=== PATIENT | male | born 1950 | race Caucasian/White ===

== ENCOUNTER 2018-03-14 17:57 | Emergency (ER) | payer MEDICARE, OTHER ==
[~2018-03-14] VITALS: Ht 180.3 cm; Wt 84.8 kg
[~2018-03-14 17:57] MED LIST: ALEVE220 MG PO; ASPIR-LOW81 MG PO; AUGMENTIN 875-1 EACH PO; FISH OIL 1,0001 EAC1 PO; FISH OIL 1,0001 EAC2 PO; IBUPROFEN600 MG PO; NORCO 5-325 TA1 EACH PO; ZEGERID OTC 201 EACH PO
[2018-03-14] MEDS ORDERED: POLYMYXIN B-TMP10 ML OPTH (18:13)
[2018-03-14] MEDS ORDERED: TAMSULOSIN HCL0.4 MG PO (18:14)
[2018-03-14] MEDS ORDERED: DOXYCYCLINE HY100 MG PO (18:30)
[2018-03-14] MEDS ORDERED: MEDROL4 MG PO (18:30)
== END 2018-03-14 18:34 | disposition home or self-care (01) ==
LOC: ED 17:57
DX: H65.91 Unspecified nonsuppurative otitis media, right ear (principal); K21.9 Gastro-esophageal reflux disease without esophagitis; Z79.82 Long term (current) use of aspirin; Z79.899 Other long term (current) drug therapy
CPT/HCPCS: 99283

== ENCOUNTER 2021-02-04 12:58 | Day surgery (SDC) | payer MEDICARE, OTHER ==
[~2021-02-04] VITALS: Ht 177.8 cm; Wt 87.3 kg
[~2021-02-04 12:58] MED LIST changes: +DOXYCYCLINE HY100 MG PO; +MEDROL4 MG PO; +POLYMYXIN B-TMP10 ML OPTH; +TAMSULOSIN HCL0.4 MG PO
--- NOTE | 2021-02-04 18:14 | NUR ---
02/04/21 1814 Conti,Myah Mohr PATIENT SLEEPING. AWAKENS EASILY TO VOICE. O2 TURNED OFF. PATIENT ON ROOM AIR. DENIES PAIN.
--- NOTE | 2021-02-05 21:11 | OR ---
[facility] [address], [place] [address] Signed DATE OF OPERATION: 02/04/2021 SURGEON: Diamante Ray MD PREOPERATIVE DIAGNOSIS: History of polyp, tubular adenoma in 2018. POSTOPERATIVE DIAGNOSES: 1. Sigmoid diverticulosis. 2. Polyps x4 (small). PROCEDURE: Total colonoscopy to cecum with cold morcellation polypectomy x4. ANESTHESIA: Intravenous sedation, fentanyl 100 mcg and Versed 5 mg. INDICATION: This 70-year-old white man who is a patient Dr. Lopez and has history of polyps including tubular adenoma excised in 2018. He is symptom free currently. He has no family history of colon cancer. He was admitted at this time to undergo surveillance colonoscopy understand the risks of bleeding, infection, and perforation. FINDINGS: The prep was excellent. Complete colonoscopy was undertaken to the cecum without question. He had a very small polyp of the cecum, which was excised and almost certainly an adenoma. There were four other small polyps noted throughout the colon including the left sigmoid and rectosigmoid. Those polyps appeared likely to be adenomatous, though the lowest one was probably hyperplastic. There were no other findings of concern. PROCEDURE: The patient was brought to the endoscopy suite and placed in lateral decubitus position, given intravenous sedation to the point of slurred speech and nystagmus. Digital rectal examination was normal. An Olympus video colonoscope was passed in the rectum and manipulated throughout the colon noting numerous diverticula of the sigmoid and left colon. The scope was ultimately passed to the cecum. The ileocecal valve and appendiceal orifice were normal. Abdominal wall stabilization was required to attain complete intubation of the Electronically Signed By: DIAMANTE ARY MD 02/05/212110 PATIENT NAME: GABY VILLA OPERATIVE REPORT DATE OF : 46 REPORT #: [id number] PHYSICIAN: DIAMANTE RAY MD PCP: TONY LOPEZ MD REPORT IS CONFIDENTIAL AND NOT TO BE RELEASED WITHOUT AUTHORIZATION [facility] [address], [place] [address] Signed cecum, but it was accomplished without problem. A small polyp was noted in the cecum. This was excised with cold morcellation technique. The scope was withdrawn. Examination undertaken showing no sign of abnormality until the proximal transverse colon where a small polyp was noted this was excised with cold morcellation technique. The scope was further withdrawn. Another polyp was seen in the left colon and excised with cold morcellation technique. Further withdrawal showed numerous diverticula and ultimately hyperplastic appearing polyps of the rectosigmoid and sigmoid. These were excised as well. Retroflexed view in the rectum was normal. Scope was removed and the patient was taken to the recovery room in good condition. CONCLUDING DIAGNOSES: 1. Polyps x4. 2. Diverticulosis. PLAN: Recommend high-fiber diet and repeat colonoscopy in 3 years sooner if clinically indicated. He will return to the ongoing care of Dr. Lopez. MD MICHAEL Alonso/KIA /[id number] cc: Dr. Lopez Copies: ~ Electronically Signed By: DIAMANTE RAY MD 02/05/21 2111 PATIENT NAME: ALLENGABY OPERATIVE REPORT DATE OF : 46 REPORT #: [id number] PHYSICIAN: DIAMANTE RAY MD PCP: TONY LOPEZ MD REPORT IS CONFIDENTIAL AND NOT TO BE RELEASED WITHOUT AUTHORIZATION
--- NOTE | 2021-02-06 15:21 | PATH ---
[facility] [address] [place], [place] [address] Signed SPECIMEN(S): A CECAL POLYP SPECIMEN(S): B TRANSVERSE POLYP SPECIMEN(S): C DESCENDING POLYP SPECIMEN(S): D SIGMOID POLYP SPECIMEN SOURCE: A. CECAL POLYP B. TRANSVERSE POLYP C. DESCENDING POLYP D. SIGMOID POLYP CLINICAL HISTORY: Colonoscopy. Preop: Surveillance; history of colon polyps. Postop: Diverticulosis, colon polyps x 4. MICROSCOPIC DESCRIPTION: Histologic sections of all submitted blocks are examined by light microscopy. These findings, together with the gross examination, support the pathologic diagnosis. FINAL PATHOLOGIC DIAGNOSIS: A. Colon, cecum, polyp, polypectomy: - Tubular adenoma. - Negative for high-grade dysplasia or malignancy. B. Colon, transverse, polyp, polypectomy: - Tubular adenoma. - Negative for high-grade dysplasia or malignancy. C. Colon, descending, polyp, polypectomy: - Tubular adenoma. - Negative for high-grade dysplasia or malignancy. D. Colon, sigmoid, polyp, polypectomy: - Hyperplastic polyp. - Negative for dysplasia or malignancy. NAL:cml:C2NR GROSS DESCRIPTION: Four specimens are received in four containers, labeled "GD." A. The specimen, labeled "GD, #1," and designated on the requisition "cecum polyp," is received in formalin and consists of two avila soft tissue fragments that measure 0.3 cm in greatest dimension. The specimen is entirely submitted in cassette (A1). B. The specimen, labeled "GD, #2," and designated on the requisition PATIENT NAME: ALLEN,GABY ROBERT PATHOLOGY DATE OF : 46 REPORT #: [id number] PHYSICIAN: KEVAN PATHOLOGY PCP: TONY ESCOTO MD REPORT IS CONFIDENTIAL AND NOT TO BE RELEASED WITHOUT AUTHORIZATION [facility] [address] [place], [place] [address] Signed "transverse colon polyp," is received in formalin and consists of three avila soft tissue fragments that measure 0.2 cm in greatest dimension. The specimen is entirely submitted in cassette (B1). C. The specimen, labeled "GD, #3," and designated on the requisition "descending colon polyp," is received in formalin and consists of four avila soft tissue fragments that measure 0.2-0.3 cm in greatest dimension. The specimen is entirely submitted in cassette (C1). D. The specimen, labeled "GD, #4," and designated on the requisition "sigmoid colon polyp," is received in formalin and consists of one avila soft tissue fragment that measures 0.3 cm in greatest dimension. The specimen is entirely submitted in cassette (D1). AT (under the direct supervision of a pathologist) The Gross Description was prepared using a voice recognition system. The report was reviewed for accuracy; however, sound-alike word errors, addition and/or deletions may occur. If there is any question about this report, please contact Client Services. PERFORMING LABORATORY: The technical component was performed by [facility] [address] (Machine Feeder: Neena Leavitt MD; CLIA# [id number]). [facility], [address] [place] [id number] (CLIA# [id number]). Diagnostician: Bambi Capps MD Pathologist Electronically Signed 02/06/2021 Copies: ~ PATIENT NAME: ALLENGABY PATHOLOGY DATE OF : 46 REPORT #: [id number] PHYSICIAN: KEVAN COOK PCP: TONY ESCOTO MD REPORT IS CONFIDENTIAL AND NOT TO BE RELEASED WITHOUT AUTHORIZATION
== END 2021-02-04 18:55 | disposition home or self-care (01) ==
LOC: OPS 12:58 → DS 13:04 → OPS 14:00
PROVIDERS: ATTEND Surgery
PROC: 0DBL8ZX Excision of Transverse Colon, Via Natural or Artificial Opening Endoscopic, Diagnostic (ICD-10-PCS; 2021-02-04)
PROC: 0DBN8ZX Excision of Sigmoid Colon, Via Natural or Artificial Opening Endoscopic, Diagnostic (ICD-10-PCS; 2021-02-04)
PROC: 0DBM8ZX Excision of Descending Colon, Via Natural or Artificial Opening Endoscopic, Diagnostic (ICD-10-PCS; 2021-02-04)
PROC: 0DBH8ZX Excision of Cecum, Via Natural or Artificial Opening Endoscopic, Diagnostic (ICD-10-PCS; principal; 2021-02-04 14:00)
DX: Z12.11 Encounter for screening for malignant neoplasm of colon (principal); D12.0 Benign neoplasm of cecum; D12.4 Benign neoplasm of descending colon; D12.3 Benign neoplasm of transverse colon; K63.5 Polyp of colon; K21.9 Gastro-esophageal reflux disease without esophagitis; Z87.19 Personal history of other diseases of the digestive system; Z86.010 Personal history of colon polyps; Z80.0 Family history of malignant neoplasm of digestive organs; Z79.82 Long term (current) use of aspirin
CPT/HCPCS: 99153; G0500; J0690; J2250; J3010; J7121

== ENCOUNTER 2023-12-01 18:23 | Emergency (ER) | payer MEDICARE, OTHER ==
[~2023-12-01] VITALS: Ht 177.8 cm; Wt 87.1 kg
--- OUTSIDE RECORDS SUMMARY | 2023-12-01 18:31 | XMS ---
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 Trey has no Care Guidelines for this patient. Eve VISIT COUNT (12 MO.) 1 DAVIN Bush TOTAL 1 NOTE: Visits indicate total known visits. ED/UCC VISIT TRACKING (12 MO.) 12/01/2023 18:24 DAVIN Farmer [place] TYPE: Emergency COMPLAINT: - GROIN PAIN INPATIENT VISIT TRACKING (12 MO.) No inpatient visits to display in this time frame [email or web address]
[2023-12-01 19:17] VITALS: BP 171/98
== END 2023-12-01 19:08 | disposition home or self-care (01) ==
LOC: ED 18:23
DX: S76.111A Strain of right quadriceps muscle, fascia and tendon, initial encounter (principal); X50.1XXA Overexertion from prolonged static or awkward postures, initial encounter; K21.9 Gastro-esophageal reflux disease without esophagitis; Z79.899 Other long term (current) drug therapy; Z79.82 Long term (current) use of aspirin
CPT/HCPCS: 83880; 99283

== ENCOUNTER 2025-05-01 18:26 | Emergency (ER) | payer MEDICARE, OTHER ==
[~2025-05-01] VITALS: Ht 177.8 cm; Wt 83.0 kg
[~2025-05-01 18:26] MED LIST changes: +LISINOPRIL10 MG PO
--- OUTSIDE RECORDS SUMMARY | 2025-05-01 18:34 | XMS ---
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 ESergio VISIT COUNT (12 MO.) 2 DAVIN Bush TOTAL 2 NOTE: Visits indicate total known visits. ED/UCC VISIT TRACKING (12 MO.) 05/01/2025 18:27 DAVIN Farmer OR TYPE: Emergency COMPLAINT: - RT HAND SWELLING 06/12/2024 08:59 DAVIN Farmer [place] TYPE: Emergency COMPLAINT: - CHEST PAIN DIAGNOSES: - Essential (primary) hypertension - Gastro-esophageal reflux disease without esophagitis - FDC (current) use of aspirin - Other chest pain - Other exterminator termite (current) drug therapy INPATIENT VISIT TRACKING (12 MO.) No inpatient visits to display in this time frame [email or web address]
[2025-05-01] MEDS ORDERED: IBUPROFEN 800 MG TAB PO ONE (19:15)
[2025-05-01 19:52] VITALS: BP 164/81
== END 2025-05-01 19:52 | disposition home or self-care (01) ==
LOC: ED 18:26
DX: M18.11 Unilateral primary osteoarthritis of first carpometacarpal joint, right hand (principal); I10 Essential (primary) hypertension; K21.9 Gastro-esophageal reflux disease without esophagitis; Z79.82 Long term (current) use of aspirin; Z79.899 Other long term (current) drug therapy
CPT/HCPCS: 73130; 99283; A9270